=== PATIENT | male | born 1970 | race Caucasian/White ===

== ENCOUNTER 2017-01-18 08:15 | Inpatient (IN) ==
--- NOTE | 2017-01-18 08:40 | Emergency Department Note ---
Disposition Clinical Impression: Suicidal ideation, Suicidal behavior with attempted self-injury Disposition: Admitted As Inpatient Condition: Good Time of Disposition: 16:11 Psych HPI - General Chief Complaint: ED Psychiatric Symptoms Stated Complaint: SI Time Seen by Provider: 01/18/17 08:27 Source: patient Limitations: no limitations Nursing Notes Reviewed: Yes Vital Signs Reviewed: Yes - History of Present Illness HPI Narrative: 46-year-old male presenting to the emergency department for suicidal ideation. He states last night he attempted to cut his left wrist. He stopped because he thought of his mother and did not want to continue. He has a history of psychiatric hospitalizations with the last being less than one year ago. He states he has no homicidal ideation. He admits to using cocaine last night. He denies any other drug use or alcohol use. Pt complaint: suicidal ideation, feels depressed Self harm or harm to others: admits thoughts of self harm, has plan - Related Data Home Medications Medication Instructions Recorded Confirmed Quetiapine Fumarate [Seroquel] 50 mg PO DAILY PRN 01/18/17 01/18/17 Quetiapine Fumarate [Seroquel] 100 mg PO HS 01/18/17 01/18/17 Allergies Allergy/AdvReac Type Severity Reaction Status Date / Time No Known Allergies Allergy Verified 01/18/17 08:23 Constitutional: Denies: fever, chills, weakness Eyes: Denies: eye discharge ENT ED: Reports: as per HPI Cardiovascular: Denies: chest pain, palpitations, dyspnea on exertion Respiratory: Denies: cough, dyspnea, wheezes Gastrointestinal: Denies: abdominal pain, nausea, vomiting Genitourinary: Reports: as per HPI Musculoskeletal: Reports: as per HPI Neurological: Denies: headache, weakness, numbness Psychiatric: Reports: depression, suicidal thoughts. Denies: auditory hallucinations, visual hallucinations Past Medical History - Past Medical History Medical history: Reports: diabetes Psychiatric history: Reports: anxiety - Social History Smoking Status: Current every day smoker Smokeless Tobacco Status: No Alcohol use: Reports: none Drug use: Reports: cocaine Physical Exam - General Limitations: no limitations General appearance: alert, in no apparent distress - Head Head exam: atraumatic, normocephalic - Eye Eye exam: Present: normal appearance - Neck Neck exam: Present: normal inspection - Chest Chest inspection: Present: normal inspection, symmetric chest wall rise. Absent : tenderness - Respiratory Respiratory exam: Present: normal lung sounds bilaterally. Absent: respiratory distress, wheezes - Cardiovascular Cardiovascular exam: Present: regular rate, normal rhythm - Abdominal Exam Abdominal exam: Present: soft, Non-Tender. Absent: distention, guarding, rebound - Extremities Exam Extremities exam: Present: normal inspection, full ROM - Neurological Exam Neurological exam: Present: alert, oriented X3 - Psychiatric Psychiatric exam: Present: depressed, flat affect, suicidal ideation - Skin Skin exam: Present: other (1 inch horizontal superficial cut at volar aspect wrist) Course Course Narrative: 46-year-old male presenting to the emergency department for suicidal ideation. Due to his plan and actions we will do a psychiatric workup and put a call out to [facility]. - Reevaluation(s) Reevaluation #1: [facility] has spoken with the patient and agrees the patient needs to be placed in a psychiatric institute. There unfortunately are no beds here at [facility]. The nurse will start placement procedure. Time: 13:41 Reevaluation #2: According to [facility], they now have a bed available. The patient will be brought up and stay as an inpatient at [facility]. Time: 16:10 Vital Signs Temperature 97.7 F 01/18/17 08:16 Pulse Rate 87 01/18/17 08:16 Respiratory Rate 18 01/18/17 08:16 Blood Pressure 166/97 01/18/17 08:16 O2 Sat by Pulse Oximetry 96 01/18/17 08:16 Temperature 97.7 F 01/18/17 08:16 Pulse Rate 70 01/18/17 15:21 Respiratory Rate 20 01/18/17 15:21 Blood Pressure 124/69 01/18/17 15:21 O2 Sat by Pulse Oximetry 97 01/18/17 15:21 Oxygen Delivery Oxygen Delivery Room Air Psych - Lab Data Result diagrams: 01/18/17 08:54 01/18/17 08:54 Lab Results 01/18/17 01/18/17 01/18/17 Range/Units 08:54 08:54 09:35 WBC 8.9 (4.3-11.1) K/mcL RBC 5.06 (4.19-5.50) M/mcL Hgb 14.5 (12.9-16.9) g/dL Hct 44.1 (37.5-50.1) % MCV 87.2 (83.0-100.0) fL MCH 28.7 (28.0-33.3) pg MCHC 32.9 (31.6-35.5) g/dL RDW 12.1 (11.5-14.5) % Plt Count 155 (140-400) K/mcL MPV 10.5 (9.4-12.4) fL Immature Gran % 0.6 (0-4) % Seg Neutrophils % 74.6 % Lymphocytes % 18.7 % Monocytes % 4.4 % Eosinophils % 1.1 % Basophils % 0.6 % Neutrophils # 6.7 (1.6-8.9) K/mcL Lymphocytes # 1.7 (0.6-4.6) K/mcL Monocytes # 0.4 (0.0-1.3) K/mcL Eosinophils # 0.1 (0.0-0.6) K/mcL Basophils # 0.1 (0.0-0.2) K/mcL Sodium 138 (136-145) mEq/L Potassium 3.9 (3.5-4.5) mEq/L Chloride 103 (98-109) mEq/L Carbon Dioxide 25 (19-29) mEq/L BUN 10 (8-26) mg/dL Creatinine 1.13 (0.72-1.25) mg/dL Est GFR ( Amer) > 60 (> 60) Est GFR (Non-Af Amer) > 60 (> 60) BUN/Creatinine Ratio 9 (6-26) Glucose 334 H (70-99) mg/dL Calculated Osmolality 298 (280-300) Calcium 8.9 (8.6-10.8) mg/dL Urine Color Yellow (Yellow) Urine Clarity Clear (Clear) Urine pH 6.0 (5.0-8.0) pH Units Ur Specific [place] > 1.030 H (1.010-1.025) Urine Protein Negative (Neg-Trace) mg/dL Urine Glucose (UA) >=1000 H (Normal) mg/dL Urine Ketones Negative (Negative) mg/dL Urine Blood Negative (Negative) Urine Nitrite Negative (Negative) Urine Bilirubin Negative (Negative) Urine Urobilinogen Normal (Normal) mg/dL Ur Leukocyte Esterase Negative (Negative) Salicylates < 5.0 L (15-30) mg/dL Urine Opiates Screen (Hwhrkl=241) ng/mL Acetaminophen < 1.0 L (10-30) mcg/mL Ur Barbiturates Screen (Gtxuqp=516) ng/mL Ur Phencyclidine Scrn (Cutoff=25) ng/mL Ur Amphetamines Screen (Ozvmed=3211) ng/mL U Benzodiazepines Scrn (Onhqtk=461) ng/mL Urine Cocaine Screen (Cutoff= 300) ng/mL U Marijuana (THC) Screen (Cutoff = 50) ng/mL Ethyl Alcohol < 10 (0-10) mg/dL 01/18/17 Range/Units 09:35 WBC (4.3-11.1) K/mcL RBC (4.19-5.50) M/mcL Hgb (12.9-16.9) g/dL Hct (37.5-50.1) % MCV (83.0-100.0) fL MCH (28.0-33.3) pg MCHC (31.6-35.5) g/dL RDW (11.5-14.5) % Plt Count (140-400) K/mcL MPV (9.4-12.4) fL Immature Gran % (0-4) % Seg Neutrophils % % Lymphocytes % % Monocytes % % Eosinophils % % Basophils % % Neutrophils # (1.6-8.9) K/mcL Lymphocytes # (0.6-4.6) K/mcL Monocytes # (0.0-1.3) K/mcL Eosinophils # (0.0-0.6) K/mcL Basophils # (0.0-0.2) K/mcL Sodium (136-145) mEq/L Potassium (3.5-4.5) mEq/L Chloride (98-109) mEq/L Carbon Dioxide (19-29) mEq/L BUN (8-26) mg/dL Creatinine (0.72-1.25) mg/dL Est GFR ( Amer) (> 60) Est GFR (Non-Af Amer) (> 60) BUN/Creatinine Ratio (6-26) Glucose (70-99) mg/dL Calculated Osmolality (280-300) Calcium (8.6-10.8) mg/dL Urine Color (Yellow) Urine Clarity (Clear) Urine pH (5.0-8.0) pH Units Ur Specific [place] (1.010-1.025) Urine Protein (Neg-Trace) mg/dL Urine Glucose (UA) (Normal) mg/dL Urine Ketones (Negative) mg/dL Urine Blood (Negative) Urine Nitrite (Negative) Urine Bilirubin (Negative) Urine Urobilinogen (Normal) mg/dL Ur Leukocyte Esterase (Negative) Salicylates (15-30) mg/dL Urine Opiates Screen Negative (Lqfeis=429) ng/mL Acetaminophen (10-30) mcg/mL Ur Barbiturates Screen Negative (Mpbjfm=597) ng/mL Ur Phencyclidine Scrn Negative (Cutoff=25) ng/mL Ur Amphetamines Screen Negative (Gwpukn=0205) ng/mL U Benzodiazepines Scrn Negative (Ebtblx=116) ng/mL Urine Cocaine Screen Positive H (Cutoff= 300) ng/mL U Marijuana (THC) Screen Negative (Cutoff = 50) ng/mL Ethyl Alcohol (0-10) mg/dL Psychiatric Medical Clearance - Medical Clearance Checklist Medical History: No Social History Section defined Current Vitals: Last Vital Signs Temp 97.7 F 01/18/17 08:16 Pulse 70 01/18/17 15:21 Resp 20 01/18/17 15:21 BP 124/69 01/18/17 15:21 Pulse Ox 97 01/18/17 15:21 Psychiatric Lab Panel: Drug Levels and Toxicity 01/18/17 01/18/17 08:54 09:35 Urine Opiates Screen Negative Acetaminophen < 1.0 L Ur Barbiturates Screen Negative Ur Phencyclidine Scrn Negative Ur Amphetamines Screen Negative U Benzodiazepines Scrn Negative Urine Cocaine Screen Positive H U Marijuana (THC) Screen Negative Ethyl Alcohol < 10 Abnormal Labs: Abnormal lab results Glucose 334 mg/dL (70-99) H 01/18/17 08:54 Ur Specific [place] > 1.030 (1.010-1.025) H 01/18/17 09:35 Urine Glucose (UA) >=1000 mg/dL (Normal) H 01/18/17 09:35 Salicylates < 5.0 mg/dL (15-30) L 01/18/17 08:54 Acetaminophen < 1.0 mcg/mL (10-30) L 01/18/17 08:54 Urine Cocaine Screen Positive ng/mL (Cutoff= 300) H 01/18/17 09:35 Attestation Statement - Attestation Attestation: Patient was seen with resident physician. I reviewed the history, physical, assessment and plan, and agree with the findings. I also personally evaluated this patient and had [id number] time with this patient. 46-year-old male presents emergency Department with chief complaint of suicidal ideation. Patient has history of same. Patient states that he is a former abuser and fell off the wagon last night starting with cocaine abuse. He tried to hurt himself and has superficially cut his left wrist. He still feels very depressed , with some anxiety. And is tearful on examination. He denies nausea vomiting diarrhea or other complaints. On examination vital signs are stable. ENT unremarkable. Heart and lungs normal. Abdomen is soft and nontender. Extremities unremarkable. Neurologically intact. Psychiatric examination patient is anxious depressed and tearful. He is otherwise cooperative. ED course. We will do usual psychiatric workup. The superficial laceration to the right wrist does not require repair at this time. Once labs are back we will notify one A and have them evaluate and disposition patient accordingly. Ia agreed to accept the patient. He will be transferred to psychiatric department for inpatient management. Hemodynamically he remains stable on the emergency department. I agree with the resident physician assessment plan.
[2017-01-18 09:00] LABS: Basophils # 0.1 K/mcL (0.0-0.2); Basophils % 0.6 %; Eosinophils # 0.1 K/mcL (0.0-0.6); Eosinophils % 1.1 %; Hematocrit 44.1 % (37.5-50.1); Hemoglobin 14.5 g/dL (12.9-16.9); Immature Granulocytes % 0.6 % (0-4); Lymphocytes # 1.7 K/mcL (0.6-4.6); Lymphocytes % 18.7 %; Mean Corpuscular HGB Conc 32.9 g/dL (31.6-35.5); Mean Corpuscular Hemoglobin 28.7 pg (28.0-33.3); Mean Corpuscular Volume 87.2 fL (83.0-100.0); Mean Platelet Volume 10.5 fL (9.4-12.4); Monocytes # 0.4 K/mcL (0.0-1.3); Monocytes % 4.4 %; Neutrophils # 6.7 K/mcL (1.6-8.9); Platelet Count 155 K/mcL (140-400); Red Blood Count 5.06 M/mcL (4.19-5.50); Red Cell Distribution Width 12.1 % (11.5-14.5); Segmented Neutrophils % 74.6 %
[2017-01-18 09:17] LABS: BUN/Creatinine Ratio 9 (6-26); Blood Urea Nitrogen 10 mg/dL (8-26); Calcium 8.9 mg/dL (8.6-10.8); Carbon Dioxide 25 mEq/L (19-29); Chloride 103 mEq/L (98-109); Glucose 334 mg/dL (70-99); Osmolality,Calculated 298 (280-300); Potassium 3.9 mEq/L (3.5-4.5); Sodium 138 mEq/L (136-145); eGFR For African Americans > 60 (> 60); eGFR For Non-African Americans > 60 (> 60)
[2017-01-18 09:18] LABS: Acetaminophen < 1.0 mcg/mL (10-30); Ethanol < 10 mg/dL (0-10); Salicylate < 5.0 mg/dL (15-30)
[2017-01-18 09:41] LABS: Bilirubin,Urine Negative (Negative); Blood,Urine Negative (Negative); Clarity,Urine Clear (Clear); Color,Urine Yellow (Yellow); Glucose,Urine (UA) >=1000 mg/dL (Normal); Ketones,Urine Negative (Negative); Leukocyte Esterase,Urine Negative (Negative); Nitrite,Urine Negative (Negative); Protein,Urine Negative (Neg-Trace); Specific Gravity,Urine > 1.030 (1.010-1.025); Urobilinogen,Urine Normal (Normal)
[2017-01-18 09:48] LABS: Amphetamine Screen,Urine Negative ng/mL (Cutoff=1000); Barbiturate Screen,Urine Negative ng/mL (Cutoff=200); Benzodiazepines Screen,Urine Negative ng/mL (Cutoff=200); Cannabinoid Screen,Urine Negative ng/mL (Cutoff = 50); Cocaine Screen,Urine Positive ng/mL (Cutoff= 300); Opiate Screen,Urine Negative ng/mL (Cutoff=300); Phencyclidine Screen,Urine Negative ng/mL (Cutoff=25)
[2017-01-18] MEDS ORDERED: MOM Conc 10 ML UD.LIQ PO PRN (18:00)
[2017-01-18] MEDS ORDERED: *HR* LORazepam 2 MG/ML VIAL IM PRN (18:00)
[2017-01-18] MEDS ORDERED: Ibuprofen 400 MG TABLET PO PRN (18:00)
[2017-01-18] MEDS ORDERED: *HR* LORazepam 1 MG TABLET PO PRN (18:00)
[2017-01-18] MEDS ORDERED: Haloperidol Lactate 5 MG/ML VIAL IM PRN (18:00)
[2017-01-18] MEDS ORDERED: Mag Hydrox/Al Hydrox/Simeth 30 ML UDC PO PRN (18:00)
[2017-01-18] MEDS ORDERED: Dextrose Gel 15 GM PO PRN ×2 (18:15)
[2017-01-19] MEDS ORDERED: Insulin LISPRO 300 UNITS/3 ML VIAL SQ SCH (07:30)
--- NOTE | 2017-01-19 08:30 | Psychiatry History & Physical ---
Date of Encounter: 01/19/17 Time of Encounter: 08:23 History of Present Illness Patient Stated Chief Complaint: suicidal ideation Medicare Admission Attestation: For traditional Medicare patients the provided hospital inpatient services are reasonable and necessary and in the case of services not specified as inpatient -only under 42 CFR 419.22 (n), that they are appropriately provided as inpatient services in accordance 42 CFR 412.3. For Critical Access Hospital the patient may reasonably be expected to be discharged or transferred to a hospital within 96 hours after admission to the Critical Access Hospital. Admitted From: Home Plans for Post Hospital Care: Home History of Present Illness: Mr. Ibarra is a 46 year old male who presented to the ER with suicidal ideation. Client reports a long history of depression but does not know what his actual diagnosis is. Previously on [facility] before. Already linked with services including a Psychiatrist, counselor, and correctional casework specialist. Reports feeling overwhelmed. No family or friends in the area. Currently on parole and can't leave until 2019. Staying in a friend's trailer but friend needs it back in March to go to [place] and client will then be homeless. Can't keep a job. Reports in the past couple of weeks he has tried to overdose and cut his wrist with a broken light bulb piece. Relapsed on crack cocaine a couple of days ago. Looks depressed. Flat, tearful. Currently takes Seroquel and reports it helps some. Diabetic but not managing blood sugars. Recently started on a new antihyperglycemic but has not picked it up from pharmacy yet and does not know name of medication (pharmacy will not be open until tomorrow) . Discussed antidepressants-he has tried several in the past without success. Has never tried Wellbutrin. This would be a good choice as none of the other antidepressants is quite like it, he looks like he needs an antidepressant that is a little activating, and it should not impact his blood sugars too much. He denies any history of seizures. Past Med Surg Social Fam HX - Past Medical History Medical history: diabetes - Past Psychiatric History Psychiatric history: Reports: depression, prior suicide attempt, previous psychiatric hospitalization Family psychiatric history: Unknown Family History of Suicide: Unknown - Social History Smoking Status: Current every day smoker Smokeless Tobacco Status: No Alcohol use: none Drug use: cocaine - Family History Mother Adopted: [place]: Abigail Ibarra Age: 70 Family Member Ethnicity: Non- Living Status: Still Living Hx Family Cardiac Disorders: Yes (MS x4) Hx Family Respiratory Disorders: No Hx Family Cancer: No Hx Family GI Disorders: No Hx Family Genitourinary Disorders: No Hx Family Endocrine Disorder: No Hx Family Musculoskeletal Disorders: No Hx Family Neuromuscular Disorders: No Hx Family Neurologic Disorders: No Hx Family HEENT Disorders: No Hx Family Autoimmune Disorders: No Hx Family Reproductive Disorders: No Hx Family Psychosocial Disorders: No Hx Family Medical Disorders: No Medications & Allergies Quetiapine Fumarate [Seroquel] 50 mg PO DAILY PRN 01/18/17 [History] Quetiapine Fumarate [Seroquel] 100 mg PO HS 01/18/17 [History] Allergies No Known Allergies Allergy (Verified 01/18/17 08:23) Review of Systems Constitutional: Denies: fever, chills, weakness, weight change Eyes: Denies: eye pain, vision change Ears, Nose, Throat: Denies: ear pain, throat pain, dental pain, hearing loss, congestion Cardiovascular: Denies: chest pain, palpitations, dyspnea on exertion Respiratory: Denies: cough, dyspnea, wheezes Gastrointestinal: Denies: abdominal pain, nausea, vomiting, diarrhea, constipation Genitourinary male: Denies: urgency, dysuria, frequency, genital lesions Genitourinary female: Denies: urgency, dysuria, frequency, abnormal menses, dyspareunia Musculoskeletal: Denies: joint swelling, joint pain Integumentary: Denies: rash, lesions, pruritus Neurological: Denies: headache, weakness, numbness, memory loss Endocrine: Denies: fatigue, heat or cold intolerance Hematologic/Lymphatic: Denies: easy bruising, lymphadenopathy Allergic/Immunologic: Denies: urticaria, itchy eyes Mental Status Exam Patient orientation: Yes Person, Yes Time, Yes Place Level of alertness: Alert Patient appearance: Appropriate Behavior: tearful Psychomotor activity: Normal Eye contact: Minimal Contact Mood description: Depressed Affect description: flat, tearful Speech pattern: Normal rate, Normal rhythm, Normal tone Speech volume: Normal Thought process: Linear Thought content: Yes Suicidal ideation, No Homicidal ideation, No Overt delusions Perceptual disturbances: No Auditory hallucinations, No Visual hallucinations Attention span: Capable of Focused Attention Memory description: Grossly Intact Patient reliability: Reliable Historian Intelligence estimate: Average Judgment: Limited Insight: Partial Exam - HEENT Head exam IM: Present: atraumatic Eye exam IM: Present: EOMI ENT exam IM: Present: mucous membranes moist - Neurological Neurological exam IM: Present: alert, oriented X3 - Respiratory Respiratory exam IM: Present: CTAB - GI/Abdominal GI/Abdominal exam IM: Present: normal bowel sounds - Extremities Extremities exam IM: Present: full ROM - Skin Skin exam IM: Present: normal color Results - Vital Signs Vital signs: Temp Pulse Resp BP Pulse Ox 97.2 F L 62 16 122/77 97 01/18/17 21:00 01/18/17 21:00 01/18/17 21:00 01/18/17 21:00 01/18/17 15:21 - Labs Labs: Laboratory Last Values WBC 8.9 K/mcL (4.3-11.1) 01/18/17 08:54 RBC 5.06 M/mcL (4.19-5.50) 01/18/17 08:54 Hgb 14.5 g/dL (12.9-16.9) 01/18/17 08:54 Hct 44.1 % (37.5-50.1) 01/18/17 08:54 MCV 87.2 fL (83.0-100.0) 01/18/17 08:54 MCH 28.7 pg (28.0-33.3) 01/18/17 08:54 MCHC 32.9 g/dL (31.6-35.5) 01/18/17 08:54 RDW 12.1 % (11.5-14.5) 01/18/17 08:54 Plt Count 155 K/mcL (140-400) 01/18/17 08:54 MPV 10.5 fL (9.4-12.4) 01/18/17 08:54 Immature Gran % 0.6 % (0-4) 01/18/17 08:54 Seg Neutrophils % 74.6 % 01/18/17 08:54 Lymphocytes % 18.7 % 01/18/17 08:54 Monocytes % 4.4 % 01/18/17 08:54 Eosinophils % 1.1 % 01/18/17 08:54 Basophils % 0.6 % 01/18/17 08:54 Neutrophils # 6.7 K/mcL (1.6-8.9) 01/18/17 08:54 Lymphocytes # 1.7 K/mcL (0.6-4.6) 01/18/17 08:54 Monocytes # 0.4 K/mcL (0.0-1.3) 01/18/17 08:54 Eosinophils # 0.1 K/mcL (0.0-0.6) 01/18/17 08:54 Basophils # 0.1 K/mcL (0.0-0.2) 01/18/17 08:54 Sodium 138 mEq/L (136-145) 01/18/17 08:54 Potassium 3.9 mEq/L (3.5-4.5) 01/18/17 08:54 Chloride 103 mEq/L (98-109) 01/18/17 08:54 Carbon Dioxide 25 mEq/L (19-29) 01/18/17 08:54 BUN 10 mg/dL (8-26) 01/18/17 08:54 Creatinine 1.13 mg/dL (0.72-1.25) 01/18/17 08:54 Est GFR ( Amer) > 60 (> 60) 01/18/17 08:54 Est GFR (Non-Af Amer) > 60 (> 60) 01/18/17 08:54 BUN/Creatinine Ratio 9 (6-26) 01/18/17 08:54 Glucose 334 mg/dL (70-99) H 01/18/17 08:54 POC Glucose 220 (58-89) H 01/18/17 20:07 Calculated Osmolality 298 (280-300) 01/18/17 08:54 Calcium 8.9 mg/dL (8.6-10.8) 01/18/17 08:54 Urine Color Yellow (Yellow) 01/18/17 09:35 Urine Clarity Clear (Clear) 01/18/17 09:35 Urine pH 6.0 pH Units (5.0-8.0) 01/18/17 09:35 Ur Specific [place] > 1.030 (1.010-1.025) H 01/18/17 09:35 Urine Protein Negative mg/dL (Neg-Trace) 01/18/17 09:35 Urine Glucose (UA) >=1000 mg/dL (Normal) H 01/18/17 09:35 Urine Ketones Negative mg/dL (Negative) 01/18/17 09:35 Urine Blood Negative (Negative) 01/18/17 09:35 Urine Nitrite Negative (Negative) 01/18/17 09:35 Urine Bilirubin Negative (Negative) 01/18/17 09:35 Urine Urobilinogen Normal mg/dL (Normal) 01/18/17 09:35 Ur Leukocyte Esterase Negative (Negative) 01/18/17 09:35 Salicylates < 5.0 mg/dL (15-30) L 01/18/17 08:54 Urine Opiates Screen Negative ng/mL (Focyrc=943) 01/18/17 09:35 Acetaminophen < 1.0 mcg/mL (10-30) L 01/18/17 08:54 Ur Barbiturates Screen Negative ng/mL (Opqhgl=110) 01/18/17 09:35 Ur Phencyclidine Scrn Negative ng/mL (Cutoff=25) 01/18/17 09:35 Ur Amphetamines Screen Negative ng/mL (Ouaijk=2835) 01/18/17 09:35 U Benzodiazepines Scrn Negative ng/mL (Qrtyzp=629) 01/18/17 09:35 Urine Cocaine Screen Positive ng/mL (Cutoff= 300) H 01/18/17 09:35 U Marijuana (THC) Screen Negative ng/mL (Cutoff = 50) 01/18/17 09:35 Ethyl Alcohol < 10 mg/dL (0-10) 01/18/17 08:54 Assessment and Plan (1) Major depress dis, severe Current visit: Yes Status: Acute Plan: Admit inpatient for safety and stabilization, Close observation, Suicide Precautions per unit protocol, Encourage participation in unit milieu, Group Therapy, Monitor sleep, Monitor appetite Risks, benefits, side effects, alternatives discussed w/pt: Yes Patient agreeable to treatment: Yes Plans for Post Hospital Care: Home Estimated Length of Stay (Days): 4
[2017-01-19] MEDS: BuPROPion XL (24 HR) 150 MG TABLET PO SCH (08:49)
[2017-01-20] MEDS: BuPROPion XL (24 HR) 150 MG TABLET PO SCH (08:54)
[2017-01-20] MEDS: *HR* Glimepiride 2 MG TABLET PO SCH (08:54)
--- NOTE | 2017-01-20 15:29 | Psychiatry Progress Note ---
Date of Encounter: 01/20/17 Time of Encounter: 11:45 Subjective Interval history: Patient seen this morning. He was calm, cooperative and well related. He mentioned he was admitted for suicidal ideation and depression in the setting on ongoing multiple stressors and medication noncompliance. Patient identified his stressors as recent job loss 2wks ago and homelessness. He reportedly overdosed on all his Seroquel in a suicide attempt 2wks ago after he was fired from his last job. Patient was started on Wellbutrin to which he has be compliant with no noted side effects. He reported minimal effect of his medications and continu to endorse depressive symptoms with passive suicidal thoughts due to ongoing stressors He reports being hopeless and helpless due to his inability to hold a job and lack of access to the right people for help. He is sleepig and eating well. Patient does not believe medications would help if his stressors are not token care of. On review of symptoms, he denied other mood or psychotic symptoms including AH/VH/H Review of Systems Constitutional: Denies: fever, chills, weakness, weight change Eyes: Denies: eye pain, vision change Ears, Nose, Throat: Denies: ear pain, throat pain, dental pain, hearing loss, congestion Cardiovascular: Denies: chest pain, palpitations, dyspnea on exertion Respiratory: Denies: cough, dyspnea, wheezes Gastrointestinal: Denies: abdominal pain, nausea, vomiting, diarrhea, constipation Musculoskeletal: Denies: joint swelling, joint pain Neurological: Denies: headache, weakness, numbness, memory loss Psychiatric: Reports: depression, hopelessness. Denies: auditory hallucinations Objective: Exam Patient orientation: Yes Person, Yes Time, Yes Place Level of alertness: Alert Patient appearance: Appropriate, Well Groomed Behavior: calm, cooperative Psychomotor activity: Normal Eye contact: Maintains Eye Contact Mood description: Euthymic/stable, Labile Affect description: congruent with mood, full range Speech pattern: Normal rate, Normal rhythm, Normal tone Speech volume: Normal Thought process: Linear, Goal Oriented Thought content: No Suicidal ideation, No Homicidal ideation, No Overt delusions Perceptual disturbances: No Auditory hallucinations, No Visual hallucinations Judgment: Fair Insight: Partial Results - Vital Signs Vital Signs: Temp Pulse Resp BP Pulse Ox 97.7 F 72 16 147/73 97 01/20/17 09:00 01/20/17 09:00 01/20/17 09:00 01/20/17 09:00 01/18/17 15:21 - Labs Labs: Laboratory Results - last 24 hr 01/19/17 01/20/17 19:49 08:11 POC Glucose 369 H 262 H Assessment and Plan (1) Major depress dis, severe Current visit: Yes Status: Acute Risks, benefits, side effects, alternatives discussed w/pt: Yes Patient agreeable to treatment: Yes (2) Suicidal ideation Current visit: Yes Status: Chronic Consult Discharge Plan - Plan Referrals: [facility] [Outside]
[2017-01-20] MEDS: hydrOXYzine pamoate 25 MG CAPSULE PO PRN (20:33)
[2017-01-20] MEDS: traZODone 50 MG TABLET PO PRN (20:33)
[2017-01-21] MEDS: BuPROPion XL (24 HR) 150 MG TABLET PO SCH (08:39)
[2017-01-21] MEDS: *HR* Glimepiride 2 MG TABLET PO SCH (08:39)
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
[2017-01-21] MEDS: hydrOXYzine pamoate 25 MG CAPSULE PO PRN (20:44)
[2017-01-21] MEDS: traZODone 50 MG TABLET PO PRN (20:46)
[2017-01-22] MEDS: BuPROPion XL (24 HR) 150 MG TABLET PO SCH (08:44)
[2017-01-22] MEDS: *HR* Glimepiride 2 MG TABLET PO SCH (08:44)
[2017-01-22 09:42] VITALS: BP 142/82
--- NOTE | 2017-01-22 12:37 | Discharge Summary ---
Date of Encounter: 01/22/17 Time of Encounter: 12:33 Diagnosis - Discharge Diagnosis (1) Major depress dis, severe Status: Resolved (2) Suicidal ideation Status: Resolved Medications - Discharge Medications Prescriptions: BuPROPion XL (24 HR) [Wellbutrin Xl] 150 mg PO DAILY #30 Lisinopril [Zestril] 10 mg PO DAILY #30 Quetiapine Fumarate [Seroquel] 100 mg PO HS #30 Glimepiride [Amaryl] 2 mg PO 0800 01/19/17 [History] BuPROPion XL (24 HR) [Wellbutrin Xl] 150 mg PO DAILY #30 01/22/17 [Rx] Lisinopril [Zestril] 10 mg PO DAILY #30 01/22/17 [Rx] Quetiapine Fumarate [Seroquel] 100 mg PO HS #30 01/22/17 [Rx] Allergies No Known Allergies Allergy (Verified 01/18/17 08:23) Provider Date of admission: 01/18/17 18:00 Primary care physician: PCP NO Discharging clinician: Juli Bauer Assessment and Plan - Patient/Caregiver Discharge Instructions Activity: resume usual activities as tolerated, return to work Diet: regular diet - Follow up Plan Follow up with: [facility] [place] [facility] [Outside] - 01/23/17 9:00 am (The above appointment is with Geovany, to open your case as a client and to assist in development of a plan to address housing and employment issues. Please bring you insurance card to this appointment.) [facility] [Outside] - 01/24/17 2:00 pm (The above appointment is with Dianne case coordinator. You are scheduled to see FLY De Paz, on 01/31/2017 at 11:00am for ongoing psychiatric assessment and medication management services. You are scheduled to see Adali on 02/03/2017 at 11:00am for mental health counseling. ) Disposition: Home, Self-Care Hospital Course Hospital course: Mr. Ibarra is a 46 year old mal, previously [place] to service, single, currently unemployed, with a h/o MDD who presented to the ER with suicidal ideation. Patient on presentation, reporte feeling overwhelmed due to his recent unemployment, inability to keep a job and his fear of being homeless due to his inability to find or afford a park for his camper given to him by his friends. He also reported being off his medications the last couple of weeks Currently on parole and can't leave until 2019. Patient was transferred to stabilization Patient was restarted on his medications with which he progressively showed significant improvement in his symptoms. He was compliant with his medications and and attending group sessions. He is currently doing welll and denied any side effects from his medications. He is sleeping and eating well. Patient seen and evaluated this morning. He denied any mood or psychotic symptoms. Reports significant improvement in his mood and is hopeful about the future due to referral by to integrated service for assistance with employment and housing. He denied any intent to hurt self or others. Patient is logical and goal directed with fair insight, impulse control and judgment. He is at present time psychiatrically stable and not a risk to self or others and can safely be discharge with out patient mental health follow up. - Time Spent with Patient Total time spent providing and/or coordinating discharge services: Quality - Multiple Antipsychotics Patient discharged on 2 or more antipsychotic medications: No Mental Status Exam - Mental Status Exam Patient orientation: Yes Person, Yes Time, Yes Place Level of alertness: Alert Patient appearance: Appropriate, Well Groomed Behavior: calm, cooperative Psychomotor activity: Normal Eye contact: Maintains Eye Contact Mood description: Euthymic/stable Affect description: congruent with mood, full range Speech pattern: Normal rate, Normal rhythm, Normal tone Speech Volume: Normal Thought process: Linear, Goal Oriented Thought Content: No Suicidal ideation, No Homicidal ideation, No Overt delusions Perceptual Disturbances: No Auditory hallucinations, No Visual hallucinations Judgment: Fair Insight: Partial
== END 2017-01-22 13:15 | disposition home or self-care (01) | DRG 751 ==
LOC: EMEROO 08:15 → 1ANU 08:15 → SUATTDRO 18:00 → 1ANU 01-20 13:35
PROVIDERS: ADMIT Psychiatry & Neurology Psychiatry; ATTEND Psychiatry & Neurology Psychiatry